=== PATIENT | male | born 1935 | race Caucasian/White ===

== ENCOUNTER → 2017-04-13 | Outpatient (CLI) | payer OTHER ==
[~2017-04-13] MED LIST: APRESOLINE10 M1 PO; BAYER ASPIRIN325 M1 PO; CITRUCEL500 MG PO; COUMADIN5 MG PO; DIAZEPAM PO; GABAPENTIN400 MG PO; GLUCOTROL XL10 MG PO; HYDRALAZINE HCL25 MG PO; IMDUR-ER30 M1 PO; LASIX PO; LIPITOR40 MG PO; LORTAB 10-3251 EACH PO; PERCOCET5/325 PO; TERBINAFINE (L250 MG PO; TOPROL XL50 MG PO; VALIUM2 MG PO
--- NOTE | ~2017-04-13 | CO ---
Unit #: [id number] #: [id number] Patient: SAMANTHA PAYNE JR [id number] [address] [place], [place] [address] [id number] O MR#: [id number] NAME: SAMANTHA PAYNE JR ROOM: Age: 82 Sex: M Admission Date: 04/13/2017 : 1935 Attending Physician: Bert Hamilton M.D. Primary Care Physician: Dru Mallory M.D. Consultation Date: 04/13/2017 CONSULTATION REPORT REASON FOR CONSULTATION Preoperative medical evaluation prior to left total knee arthroplasty scheduled by Dr. Hamilton for 04/25/2017. HISTORY OF PRESENT ILLNESS The patient is an 82-year-old male, who presents to preprocedural screening for the reasons indicated above. He reports having soreness in his left knee and has been evaluated by Dr. Hamilton and scheduled for left total knee arthroplasty. He reports recent chest pain, for which he was evaluated by a stress test ordered through his packer denture, Dr. Butch Ansari. He denies chest pain, upper, back, arm, neck, jaw, arm pain today. No shortness of air or dyspnea on exertion. Does not snore. No paroxysmal nocturnal dyspnea. Denies lightheadedness or dizziness. No presyncope or syncope or palpitations. Per review of his office records from Dr. Ansari, date of service 04/11/2017 indicates that although his stress test is mildly abnormal, there was same abnormalities noted on stress testing 4 years ago after which he had a cardiac cath done showing occluded right coronary artery. The medical record further states "given the fact that he has no chest pain, it is okay to proceed with orthopedic surgery with acceptable cardiac risk. The patient to take his cardiac medications with sips of water on the date of surgery and keep scheduled followup appointment." He states he has a history of myocardial infarction; although, they were "silent." He denies a history of congestive heart failure. Denies history of stroke, but has had TIA x2. He is diabetic, but not on insulin therapy and denies history of acute or chronic kidney disease. He has no additional complaints at the time of this interview. He is accompanied by his today. PAST MEDICAL HISTORY 1. Osteoarthritis. 2. Coronary artery disease with history of myocardial infarction. 3. Diabetes mellitus type 2. 4. Carotid artery disease with history of Dopplers without further recommendations for carotid surgical intervention. 5. Hypertension. 6. Hyperlipidemia. 7. Obesity, BMI of 34. 8. Risk factors for NARGIS without NARGIS evaluation. 9. History of TIA. 10. Degenerative disk disease. 11. History of skin cancer. 12. Peripheral neuropathy of both feet. [facility] #: [id number] #: [id number] Patient: ELMER HERNÁNDEZSAMANTHA The patient has not had a dental exam within the past 6 months to 1 year time frame. PAST SURGICAL HISTORY 1. Bilateral shoulder arthroplasty. 2. Right total knee arthroplasty. 3. Bilateral cataract extraction. 4. Cardiac catheterization x2. Please note, the patient denies a personal and family history of complications to anesthesia. SOCIAL HISTORY . Denies tobacco use, EtOH use, or illicit drug use. FAMILY HISTORY Per review of Dr. Ansari's office note, heart disease in both mother and father. REVIEW OF SYSTEMS A 10-point review of systems is conducted and otherwise negative except as indicated under history of present illness above. PHYSICAL EXAMINATION GENERAL: An 82-year-old male, awake, alert, in no acute distress. VITAL SIGNS: Temperature 97.8, heart rate 70, respiratory rate 18, blood pressure 147/76, oxygen saturation 93% on room air. HEENT: Atraumatic and normocephalic. Sclerae anicteric. No discharge from eyes, ears, or nares. LYMPH: No preauricular, postauricular, tonsillar, submental, anterior or posterior cervical adenopathy. No supra or infraclavicular adenopathy. ENDOCRINE: No thyromegaly, thyroid nodules, or tenderness. RESPIRATORY: Clear to auscultation in all palafxo bilaterally without wheezes, rhonchi, or rales. CARDIOVASCULAR: S1, S2. Regular rate and rhythm without murmur or rub. Normal carotid upstroke bilaterally without bruit. GI: Bowel sounds are positive x4. Soft, nontender, nondistended. EXTREMITIES: 2+ bilateral lower extremity edema without cyanosis or clubbing. Calves tender and soft bilaterally. NEUROLOGIC: Alert and oriented x3. Speech clear. Follows instructions during examination. DIAGNOSTIC STUDIES LABORATORY RESULTS: WBC 10.4, hemoglobin 13.7, hematocrit 41.8, platelets 192,000. Urinalysis negative with neither microscopic nor culture indicated. Blood type A positive, antibody screen negative. PT 10.0. INR 1.0. MRSA nasal screen report pending at this time. IMAGING STUDIES: Two-view chest x-ray report pending at this time. CARDIOVASCULAR STUDIES: 12-lead EKG, date of report 03/24/2017, interpretation is sinus rhythm, old inferior infarct. Stress nuclear pharmacological with MPI stress/rest, date 04/11/2017, impression is technically difficulty probable abnormal myocardial perfusion study. This study shows findings consistent with prior inferolateral infarct with mild jolie-infarct ischemia in the mid inferolateral cardiac segment only; mild inferior hypokinesis, other segments contract normally; resting left ventricular ejection fraction 59%; clinical correlation recommended. Unit #: [id number] #: [id number] Patient: ELMER HERNÁNDEZ,SAMANTHA IMPRESSION The patient is an 82-year-old male, who presents to preprocedural screening for; 1. Preoperative medical evaluation prior to left total knee arthroplasty. The patient's calculated [place] revised Cardiac Risk index based on information available today is 6.6% risk of fatal or nonfatal myocardial infarction, cardiopulmonary arrest, arrhythmia and/or pulmonary edema. This has been discussed in detail with the patient. He wishes to proceed with surgery as scheduled at this time. Recommend monitor and storage bin tender postoperatively. 2. Coronary artery disease with history of myocardial infarction. Again, this patient has been cleared by Dr. Ansari, the patient's cardiology as acceptable risk for left total knee arthroplasty procedure. 3. Type 2 diabetes mellitus. Monitor the patient's blood sugar perioperatively with Accu-Cheks, placed on constant carbohydrate diet, low-dose sliding scale insulin, and continue glipizide XL based on oral intake. 4. History of carotid artery disease with Dopplers without recommendation for surgical intervention. The patient has no bruits on auscultation today. 5. Hypertension. Monitor perioperative blood pressure. Adjust medications and IV fluids accordingly. 6. Hyperlipidemia. Continue home dose of Lipitor perioperatively and follow up with packer denture. 7. Obesity, BMI of 34. Weight loss to recommended BMI suggested. 8. Risk factors for obstructive sleep apnea. We will place the patient on obstructive sleep apnea protocol postoperatively and await recommendations of the patient's parameters in PACU. 9. History of transient ischemic attack. The patient is asymptomatic at this time. The patient has been evaluated for carotid artery disease and has not received recommendations for any surgical intervention in this regard. 10. Degenerative disk disease. 11. History of skin cancer. 12. Peripheral neuropathy of bilateral feet likely secondary to type 2 diabetes mellitus. Continue gabapentin perioperatively if allowed on obstructive sleep apnea protocol. 13. Health maintenance. The patient has not had a dental exam within the last year. He is aware he is to obtain preoperative dental evaluation cleaning and clearance. He will ask his dentist to provide a letter to Dr. Hamilton in this regard. Thank you for allowing us to participate in the care of this patient. We will gladly follow him for postop medical management pending order of Dr. Hamilton. Dictated by... Belen Omer A.P.R.N. for Savanna Fuentes M.D. DANA/emily TD: 04/14/2017 13:15 JOB #: [id number] Unit #: [id number] #: [id number] Patient: SAMANTHA PAYNE JR CONSULTATION REPORT Page 1 of 1 X Belen Omer APRN X CONSULTATION REPORT
--- NOTE | ~2017-04-13 | CR63 ---
[facility] A Service of [facility] & [facility] RADIOLOGY TEXT RESULTS PATIENT: SAMANTHA PAYNE JR LOCATION: [facility] : 33 UNIT #: [id number] AGE: [address]: Bert Hamilton MD SEX: M ORDER DR: [id number] [facility] [address] [place], [place] [address] [id number] O MR#: [id number] Acc #: [id number] NAME: SAMANTHA PAYNE : 1935 SEX: M STUDY DATE/TIME: 04/13/2017 11:58 UNIT: [facility] ROOM: STUDY DESCRIPTION: CR Chest 2 View Attending Physician: Bert Hamilton M.D. Referring Physician: Bert Hamilton M.D. Ordering Physician: Bert Hamilton M.D. Primary Care Physician: Dru Mallory M.D. MEDICAL IMAGING REPORT This report is preliminary unless electronic signature is present EXAM Chest, 04/13/2017 HISTORY 82-year-old male preop clearance left total knee arthroplasty. Osteoarthritis left knee. COMPARISON Chest, none. FINDINGS Two-view chest demonstrates normal cardiac size and configuration. Aorta is mildly ectatic. The lungs are hyperinflated with flattened diaphragms. There are no infiltrates. IMPRESSION Atherosclerotic aortic ectasia. COPD. Right shoulder replacement partially imaged. No acute chest finding. Dictated by... Mando Mcclendon M.D. THIS IS AN ELECTRONICALLY VERIFIED REPORT Mando Mcclendon M.D. at 04/13/2017 3:35 PM Fabian TD: 04/13/2017 14:01 JOB #: [id number] MEDICAL IMAGING REPORT Page 1 of 1 COPY
[2017-04-13 10:21] LABS: HEMATOCRIT 41.8 % (38.0-50.0); HEMOGLOBIN 13.7 gm/dL (13.0-16.0); MEAN CELL VOLUME 85.1 FL (83-96); MEAN CORPUSCULAR HEMOGLOBIN 27.8 PG (28-34); MEAN CORPUSCULAR HGB CONC 32.7 g/dL (30-36); MEAN PLATELET VOLUME 9.4 FL (6.5-11.5); RED BLOOD COUNT 4.91 X10e (3.90-5.60); RED CELL DISTRIBUTION WIDTH 16.7 % (11.0-15.5); WHITE BLOOD COUNT 10.4 X10e3 (4.0-10.5)
[2017-04-13 11:02] LABS: URINE APPEARANCE CLEAR; URINE BILIRUBIN NEG (NEG); URINE BLOOD NEG (NEG); URINE COLOR YELLOW; URINE GLUCOSE 100 MG/DL (NEG); URINE KETONE NEG (NEG); URINE LEUKOCYTE ESTERASE NEG (NEG); URINE NITRATE NEG (NEG); URINE PROTEIN NEG (NEG); URINE SPECIFIC GRAVITY 1.019 (1.003-1.035)
[2017-04-13 11:07] LABS: URINE SOURCE CLEAN CATCH
[2017-04-13 11:08] LABS: CULTURE INDICATED? NO
[2017-04-13 11:29] LABS: ALBUMIN SERUM 3.7 g/dL (3.5-5.0); BILIRUBIN,TOTAL 0.9 mg/dL (0.2-2.0); BUN/CREATININE RATIO 15.38; CALCIUM SERUM 9.1 mg/dL (8.4-10.2); CREATININE SERUM 1.3 mg/dL (0.6-1.4); GLOM FILT RATE Estimated 50.1 mL/min (>60); POTASSIUM 4.6 mmol/L (3.5-5.1); PROTEIN TOTAL SERUM 6.5 g/dL (6.0-8.3)
== END | disposition home or self-care (01) ==
LOC: CAMB 04-11 10:00
PROVIDERS: Orthopaedic Surgery
DX: Z01.818 Encounter for other preprocedural examination (principal); M17.12 Unilateral primary osteoarthritis, left knee; E11.9 Type 2 diabetes mellitus without complications; I10 Essential (primary) hypertension; I77.819 Aortic ectasia, unspecified site; J44.9 Chronic obstructive pulmonary disease, unspecified; I25.2 Old myocardial infarction; Z86.73 Personal history of transient ischemic attack (TIA), and cerebral infarction without residual deficits; Z87.01 Personal history of pneumonia (recurrent); Z79.01 Long term (current) use of anticoagulants; Z96.611 Presence of right artificial shoulder joint
CPT/HCPCS: 36415; 71020; 80053; 81003; 83036; 85027; 85610; 86850; 86900; 86901; 87070

== ENCOUNTER 2017-04-25 07:27 | Inpatient (IN) | payer OTHER ==
--- NOTE | ~2017-04-25 | EKG ---
PATIENT: SAMANTHA PAYNE UNIT #: [id number] Ventricular Rate: 66 BPM Atrial Rate: 65 BPM P-R Interval: 206 ms QRS Duration: 84 ms Q-T Interval: 458 ms QTC Calculation(Bezet): 480 ms P [place]: 45 degrees Calculated R [place]: -14 degrees Calculated T [place]: -22 degrees Diagnosis Line: Sinus rhythm Diagnosis Line: Nonspecific T wave abnormality Diagnosis Line: Abnormal ECG Diagnosis Line: When compared with ECG of 15-FEB-2014 13:52, Diagnosis Line: Nonspecific T wave abnormality now evident in Diagnosis Line: Inferior leads Diagnosis Line: Nonspecific T wave abnormality, improved in Diagnosis Line: Lateral leads Diagnosis Line: Confirmed by DIOGENES HOPE MD ([id number]) on Diagnosis Line: 04/25/2017 10:11:43 PM INTERPRETING MD: JAIMIE
--- NOTE | ~2017-04-25 | DS ---
Unit #: [id number] #: [id number] Patient: SAMANTHA PAYNE JR [id number] [address] [address] [id number] I MR#: [id number] NAME: SAMANTHA PAYNE ROOM: 450 Age: 82 Sex: M Admission Date: 04/25/2017 : 1935 Discharge Date: 04/26/2017 Attending Physician: Bert Hamilton M.D. Primary Care Physician: Dru Mallory M.D. DISCHARGE SUMMARY ADMITTING DIAGNOSIS Primary localized osteoarthritis of the left knee. DISCHARGE DIAGNOSIS Primary localized osteoarthritis of the left knee. PROCEDURE IN HOSPITAL Left total knee. HOSPITAL COURSE Patient was admitted on April 25, 2017, taken to the operating room where he underwent a left total knee replacement. Postoperatively, he has done well. He has been up with physical therapy. He is comfortable on his oral pain medicine. His blood sugar is a little bit elevated this morning, so will have to get that down prior to discharge. He is weightbearing as tolerated. He will have home physical therapy. He is on Coumadin for DVT prophylaxis, so will check his pro times tomorrow and Tuesday and adjust his dose appropriately. CONDITION ON DISCHARGE Improved. DISPOSITION To home. MEDICATIONS His medications are his routine home medicines plus his Milo and his Coumadin. Dictated by... Rosy Baer/lamonte TD: 04/27/2017 09:15 JOB #: [id number] Unit #: [id number] #: [id number] Patient: SAMANTHA PAYNE JR DISCHARGE SUMMARY Page 1 of 1 X Bert Hamilton MD X DISCHARGE SUMMARY
--- NOTE | ~2017-04-25 | OR ---
Unit #: [id number] #: [id number] Patient: SAMANTHA PAYNE JR [id number] [address] [place], [place] [address] [id number] I MR#: [id number] NAME: SAMANTHA PAYNE JR ROOM: [facility] Date of Procedure: 04/25/2017 Admission Date: 04/25/2017 Surgeon: Bert Hamilton M.D. : 1935 Attending Physician: Bert Hamilton M.D. Primary Care Physician: Dru Mallory M.D. OPERATIVE REPORT PREOPERATIVE DIAGNOSIS Primary localized osteoarthritis of the left knee. POSTOPERATIVE DIAGNOSIS Primary localized osteoarthritis of the left knee. PROCEDURE PERFORMED Left total knee. INDICATIONS FOR PROCEDURE This is an 82-year-old with severe pain in the left knee. He has had pain for months. It has gotten progressively worse. His x-rays showed that he has [id number] with subchondral sclerosis and periarticular osteophytes. The pain limits his walking and standing. DESCRIPTION OF PROCEDURE After this was done, the patient then had an adductor canal block performed. 2 g of Ancef and 2000 mg of vancomycin were administered. He was brought back to the operating room, given a general anesthetic. Tourniquet placed around the left thigh. Left leg was prepped and draped in a sterile fashion. Tourniquet was inflated to 250. A straight anterior skin incision was made. The subcutaneous dissected away and a medial arthrotomy was performed. The patient then had the patella was slid to the side. Osteophytes removed from the femur. The intramedullary guide was used and a 6-degree valgus cut was made on the distal femur. The femur was sized and found to be a size 6. The anterior-posterior cutting block was applied. Rotation was checked in the knee. Anterior and posterior cuts were made along with the chamfer cuts. Proximal tibial cut was made using a 0-degree cutting block. It was sized at a 5. The remaining meniscal fragments debrided. The posterior femoral condylar osteophytes were removed. We then injected the posterior capsule and periosteum with ropivacaine. The trial femur was applied. The drill holes were made for lugs on the femoral component. The trial tibia was applied with an 8 mm insert. The knee came to full extension and good stability in extension and flexion. Rotation of the tibia was marked. The external alignment guide showed appropriate alignment. The patient then had the patella grasped with 2 towel clips. It was measured 27 mm thick, cut smooth at 15 and a 41 patella was the appropriate size. The 3 drill holes were made. Trial patella applied and it tracked properly. We then used the drill and punch for the tibial tray. The knee was irrigated and dried while the cement was mixed and then all 3 components were cemented simultaneously. Once again, it was a size 6 femur cruciate Unit #: [id number] #: [id number] Patient: ELMER HERNÁNDEZ,SAMANTHA myrick, size 5 tibial tray, and a 41 patella with an 8 mm insert in the tray. The knee was held in extension while the cement hardened, and then after the cement hardened, the rest of ropivacaine mixture was injected. The knee was irrigated and dried and then was irrigated with antibiotic solution one last time and then closed using 0 Ethibond in the arthrotomy, 0 and 2-0 Vicryl in the subcutaneous, and agusto in the skin. Blood loss 100 mL. assistant professor of philosophy, Saravanan Cunha, was present throughout the entire case. Dictated by... Rosy Baer/emily TD: 04/26/2017 02:34 JOB #: [id number] OPERATIVE REPORT Page 1 of 1 X Bert Hamilton MD X PROCEDURE OPERATIVE NOTE
--- NOTE | ~2017-04-25 | CO ---
Unit #: [id number] #: [id number] Patient: SAMANTHA PAYNE JR [id number] [address] [place], [place] [address] [id number] I MR#: [id number] NAME: SAMANTHA PAYNE ROOM: 450 Age: 82 Sex: M Admission Date: 04/25/2017 : 1935 Attending Physician: Bert Hamilton M.D. Primary Care Physician: Dru Mallory M.D. Consultation Date: 04/26/2017 CONSULTATION REPORT REASON FOR CONSULTATION Abnormal ABG. HISTORY OF PRESENT ILLNESS An 82-year-old gentleman, who likely has obstructive sleep apnea and obesity hypoventilation syndrome, underwent total knee replacement. The surgery went well. In fact, there was an order in the chart to discharge. He had slurred speech and was sent to the CT scanner. Head CT apparently is unremarkable per voice clip. I evaluated the patient. He would wake up easily, but would have significant slurred speech. He denied shortness of breath, wheezing, chest pain, hemoptysis, pleurisy, sputum production. He did not have any pulmonary complaints whatsoever. However, arterial blood gas revealed a pH of 7.30, pCO2 of 56, pO2 of 62 on 1 or 2 L. PAST MEDICAL HISTORY Remarkable for osteoarthritis, coronary artery disease, diabetes, peripheral vascular disease, hypertension, hyperlipidemia, TIA. MEDICATIONS Currently include Coumadin, Senokot, Glucotrol, Imdur, Lipitor, metoprolol, aspirin, Neurontin, Lasix, Apresoline, Valium, Kefzol, variety of p.r.n. medications including Dilaudid and Lortab. ALLERGIES Soap primarily a Betadine. SOCIAL HISTORY Quit smoking in 1959. FAMILY HISTORY No familial lung disease. REVIEW OF SYSTEMS No chest pain, palpitations, abdominal pain, melena, hematochezia, trouble swallowing, hematuria, or dysuria. Has obvious pain from his knee surgery. No unexplained focal motor or sensory deficits. No headache or dizziness. PHYSICAL EXAMINATION GENERAL: Reveals a gentleman, who is in no acute distress. He will awaken, but still has some slurred type speech. VITAL SIGNS: He is afebrile. Pulse is 82, respiratory rate is 20 and unlabored, blood pressure is 117/51. He is 5 feet 11 inches, 279 pounds, BMI is 39. Unit #: [id number] #: [id number] Patient: SAMANTHA PAYNE JR HEENT: Pupils are equal, round, and reactive to light. Sclerae are anicteric. Head atraumatic. NECK: Supple. No supraclavicular or cervical adenopathy appreciated. Mucous membranes moist. Mallampati class IV oropharynx. CHEST: Limited exam somewhat. Equal breath sounds. Short expiratory phase. No wheeze or stridor. CARDIAC: Reveals regular rate and rhythm. Soft systolic murmur. No gallop. ABDOMEN: Obese, soft, and nontender. No hepatomegaly or rebound. EXTREMITIES: Reveal no clubbing or cyanosis. No significant edema, status post knee replacement. NEUROLOGIC: Deferred because of his surgery. SKIN: Warm and dry. DIAGNOSTIC STUDIES IMAGING STUDIES: No chest x-rays have been performed. Head CT was unremarkable. LABORATORY RESULTS: Arterial blood gas, as above. BUN 25, creatinine 1.4. White blood cell count has not been rechecked. IMPRESSION 1. Acute hypercapnic hypoxemic respiratory failure, likely combination of over-sedation on top of obstructive sleep apnea and obesity hypoventilation syndrome. At this point, no evidence of acute stroke. 2. Likely obstructive sleep apnea and obesity hypoventilation syndrome. 3. Postop total knee replacement. 4. Slurred speech likely secondary to above. 5. Multiple medical problems. PLAN Discontinue his Valium. We will try to treat pain only with oral medications. Extend the interval of his Dilaudid and save only for very severe refractory pain. I will use empiric BiPAP with sleep. Arterial blood gas will be rechecked and if he has persistent respiratory acidosis, he will need to be transferred to the intensive care unit for noninvasive mask ventilation. Portable chest x-ray will be performed. Dictated by... Marko Booth M.D. NURIS/emily TD: 04/27/2017 05:39 JOB #: [id number] CC: Bert Hamilton M.D. CONSULTATION REPORT Page 1 of 1 X Marko Booth MD CONSULTATION REPORT
--- NOTE | ~2017-04-25 | CT71 ---
[facility] A Service of [facility] RADIOLOGY TEXT RESULTS PATIENT: SAMANTHA PAYNE JR LOCATION: [facility] 450- : 33 UNIT #: [id number] AGE: [address]: Bert Hamilton MD SEX: M ORDER DR: [id number] [facility] [address] [place], [place] [address] [id number] I MR#: [id number] Acc #: [id number] NAME: SAMANTHA PAYNE : 1935 SEX: M STUDY DATE/TIME: 04/26/2017 15:04 UNIT: C4B ROOM: [facility] STUDY DESCRIPTION: CT Head Wo Contrast Attending Physician: Bert Hamilton M.D. Ordering Physician: Desirae Gil M.D. Primary Care Physician: Dru Mallory M.D. MEDICAL IMAGING REPORT This report is preliminary unless electronic signature is present EXAM CT head. INDICATION Slurred speech for [address] of the head without contrast. This CT exam was performed with one or more of the following radiation dose reduction techniques: automatic exposure control, adjustment of mA and/or kV according to patient size, and iterative reconstruction. COMPARISON None available. FINDINGS There is no acute intracranial hemorrhage, mass lesion, or acute infarct. Mercado-white matter differentiation is normal. Ventricles and basilar cisterns are normal in size and configuration. No extraaxial collections. IMPRESSION 1. No acute intracranial findings. Dictated by... Luis Carlos Montana M.D. THIS IS AN ELECTRONICALLY VERIFIED REPORT Luis Carlos Montana M.D. at 04/27/2017 9:12 AM TIERRA/capo TD: 04/26/2017 19:08 JOB #: [id number] [facility] A Service of [facility] RADIOLOGY TEXT RESULTS PATIENT: SAMANTHA PAYNE JR LOCATION: [facility] 450- : 33 UNIT #: [id number] AGE: [address]: Bert Hamilton MD SEX: M ORDER DR: MEDICAL IMAGING REPORT Page 1 of 1 COPY
--- NOTE | ~2017-04-25 | CR72 ---
[facility] A Service of [facility] RADIOLOGY TEXT RESULTS PATIENT: SAMANTHA PAYNE JR LOCATION: [facility] 450-01 : 33 UNIT #: [id number] AGE: [address]: Bert Hamilton MD SEX: M ORDER DR: [id number] [facility] [address] [place], [place] [address] [id number] I MR#: [id number] Acc #: [id number] NAME: SAMANTHA PAYNE : 1935 SEX: M STUDY DATE/TIME: 04/26/2017 18:02 UNIT: [facility] ROOM: [facility] STUDY DESCRIPTION: CR Chest Single View Portable Attending Physician: Bert Hamilton M.D. Ordering Physician: Marko Booth M.D. Primary Care Physician: Dru Mallory M.D. MEDICAL IMAGING REPORT This report is preliminary unless electronic signature is present EXAM Portable chest INDICATIONS Shortness of breath for 2 days. COMPARISON 04/13/2017 FINDINGS Slight low-volume inspiration. No acute infiltrate. Heart size normal. Bilateral shoulder arthroplasties. IMPRESSION No active disease. Dictated by... Adriano Loya M.D. THIS IS AN ELECTRONICALLY VERIFIED REPORT Adriano Loya M.D. at 04/28/2017 3:24 PM ARS/psc TD: 04/27/2017 00:39 JOB #: [id number] MEDICAL IMAGING REPORT Page 1 of 1 COPY
[~2017-04-25 07:27] MED LIST changes: -COUMADIN5 MG PO; -LORTAB 10-3251 EACH PO
[2017-04-25 09:17] LABS: INR 1.1; PROTHROMBIN TIME (PATIENT) 11.4 SECONDS (10.0-11.7)
[2017-04-26 05:38] LABS: HEMATOCRIT 37.1 % (38.0-50.0); HEMOGLOBIN 11.8 gm/dL (13.0-16.0)
[2017-04-26 05:49] LABS: INR 1.2; PROTHROMBIN TIME (PATIENT) 13.3 SECONDS (10.0-11.7)
[2017-04-26 06:48] LABS: BUN/CREATININE RATIO 17.85; CALCIUM SERUM 8.2 mg/dL (8.4-10.2); CREATININE SERUM 1.4 mg/dL (0.6-1.4); GLOM FILT RATE Estimated 45.8 mL/min (>60); MAGNESIUM 1.7 mg/dL (1.6-3.0); POTASSIUM 4.9 mmol/L (3.5-5.1)
[2017-04-26 16:52] LABS: ARTERIAL BLD GAS O2 SATURATION 91.1 % (90.0-100.0); ARTERIAL BLOOD GAS ALLEN TEST NORMAL; ARTERIAL BLOOD GAS ART SITE LEFT RADIAL; ARTERIAL BLOOD GAS CARBOXY HB 0.9 %sat (0.0-9.0); ARTERIAL BLOOD GAS DELIVERY NASAL CANNULA; ARTERIAL BLOOD GAS HCO3 27.8 mmol/L; ARTERIAL BLOOD GAS MET HB 0.8 %sat (0.0-2.0); ARTERIAL BLOOD GAS pH 7.305 (7.350-7.450); ARTERIAL DRAW? YES
[2017-04-26 18:10] LABS: ARTERIAL BLD GAS O2 SATURATION 93.6 % (90.0-100.0); ARTERIAL BLOOD GAS ALLEN TEST NORMAL; ARTERIAL BLOOD GAS ART SITE LEFT RADIAL; ARTERIAL BLOOD GAS CARBOXY HB 0.9 %sat (0.0-9.0); ARTERIAL BLOOD GAS DELIVERY NASAL CANNULA; ARTERIAL BLOOD GAS MET HB 0.8 %sat (0.0-2.0); ARTERIAL BLOOD GAS PO2 71.4 mmHg (80.0-100); ARTERIAL BLOOD GAS pH 7.307 (7.350-7.450); ARTERIAL DRAW? YES
[2017-04-26 19:52] LABS: ARTERIAL BLOOD GAS pH 7.323 (7.350-7.450)
[2017-04-26 19:53] LABS: ARTERIAL BLD GAS O2 SATURATION 94.2 % (90.0-100.0); ARTERIAL BLOOD GAS ALLEN TEST NORMAL; ARTERIAL BLOOD GAS ART SITE LEFT RADIAL; ARTERIAL BLOOD GAS CARBOXY HB 0.9 %sat (0.0-9.0); ARTERIAL BLOOD GAS DELIVERY BIPAP 16/8; ARTERIAL BLOOD GAS HCO3 30.1 mmol/L; ARTERIAL BLOOD GAS MET HB 0.7 %sat (0.0-2.0); ARTERIAL BLOOD GAS PO2 70.3 mmHg (80.0-100); ARTERIAL DRAW? YES
[2017-04-27 04:27] LABS: HEMATOCRIT 35.4 % (38.0-50.0); HEMOGLOBIN 11.5 gm/dL (13.0-16.0)
[2017-04-27 12:28] LABS: ARTERIAL BLD GAS O2 SATURATION 90.9 % (90.0-100.0); ARTERIAL BLOOD GAS ALLEN TEST NORMAL; ARTERIAL BLOOD GAS ART SITE LEFT RADIAL; ARTERIAL BLOOD GAS CARBOXY HB 0.9 %sat (0.0-9.0); ARTERIAL BLOOD GAS DELIVERY ROOM AIR; ARTERIAL BLOOD GAS HCO3 28.6 mmol/L; ARTERIAL BLOOD GAS MET HB 0.7 %sat (0.0-2.0); ARTERIAL BLOOD GAS PO2 56.5 mmHg (80.0-100); ARTERIAL BLOOD GAS pH 7.393 (7.350-7.450); ARTERIAL DRAW? YES
[2017-04-27 12:46] LABS: BUN/CREATININE RATIO 18.57; CALCIUM SERUM 8.3 mg/dL (8.4-10.2); CREATININE SERUM 1.4 mg/dL (0.6-1.4); GLOM FILT RATE Estimated 45.8 mL/min (>60); POTASSIUM 4.4 mmol/L (3.5-5.1)
[2017-04-27] MEDS ORDERED: LORTAB 10-3251 EACH PO (15:34)
[2017-04-27] MEDS ORDERED: COUMADIN5 MG PO (15:36)
== END 2017-04-27 17:16 | disposition home health service (06) | DRG 469 ==
LOC: CSUR 07:27 → CPACUOF 09:10 → CSUR 09:46 → CPACUOF 09:46 → CSUR 10:00 → C4B 12:00 → CPACUOF 12:00 → C4B 04-27 17:16
PROVIDERS: Internal Medicine; Nurse Practitioner; Orthopaedic Surgery
PROC: 5A09357 Assistance with Respiratory Ventilation, Less than 24 Consecutive Hours, Continuous Positive Airway Pressure (ICD-10-PCS; 2017-04-25)
PROC: 0SRD0J9 Replacement of Left Knee Joint with Synthetic Substitute, Cemented, Open Approach (ICD-10-PCS; principal; 2017-04-25 10:00)
DX: M17.12 Unilateral primary osteoarthritis, left knee (principal); J96.02 Acute respiratory failure with hypercapnia; J96.01 Acute respiratory failure with hypoxia; E66.2 Morbid (severe) obesity with alveolar hypoventilation; E11.9 Type 2 diabetes mellitus without complications; I25.2 Old myocardial infarction; Z86.73 Personal history of transient ischemic attack (TIA), and cerebral infarction without residual deficits; I25.10 Atherosclerotic heart disease of native coronary artery without angina pectoris; I12.9 Hypertensive chronic kidney disease with stage 1 through stage 4 chronic kidney disease, or unspecified chronic kidney disease; N18.3 Chronic kidney disease, stage 3 (moderate); I73.9 Peripheral vascular disease, unspecified; Z79.82 Long term (current) use of aspirin; Z87.891 Personal history of nicotine dependence; E66.9 Obesity, unspecified; Z79.84 Long term (current) use of oral hypoglycemic drugs
CPT/HCPCS: 36600; 70450; 71010; 80048; 82803; 82947; 83735; 85014; 85018; 85610; 93005; 94010; 94660; 94760; 97110; 97116; 97161; 97166; 97530; 97535; C1776; G8978-GP; G8979-GP; G8980-GP; G8987-GO; G8988-GO; G8989-GO; J0131; J0171; J0690; J0735; J1650; J1815; J1885; J2250; J2270; J2405; J2795; J3010; J3370